=== PATIENT | male | born 1970 | race Caucasian/White ===

== ENCOUNTER → 2022-10-03 15:30 | Outpatient (BNVA) | payer OTHER, SELFPAY | PROVIDERS: PCP Nurse Practitioner Family; Visit Provider Urology | DX: N40.1 Benign prostatic hyperplasia with lower urinary tract symptoms (principal); R35.1 Nocturia; R39.12 Poor urinary stream; R39.11 Hesitancy of micturition | CPT/HCPCS: 99202 ==

== ENCOUNTER → 2022-12-05 14:50 | Outpatient (BNVA) | payer OTHER, SELFPAY | PROVIDERS: PCP Nurse Practitioner Family; Visit Provider Urology | DX: N40.1 Benign prostatic hyperplasia with lower urinary tract symptoms (principal); R35.1 Nocturia; R39.12 Poor urinary stream; N52.1 Erectile dysfunction due to diseases classified elsewhere; N35.919 Unspecified urethral stricture, male, unspecified site; E11.69 Type 2 diabetes mellitus with other specified complication; Z87.710 Personal history of (corrected) hypospadias | CPT/HCPCS: 52000; 99212 ==

== ENCOUNTER 2023-03-16 10:41 | Day surgery (SDC) | payer MEDICAID, SELFPAY ==
--- NOTE | 2023-03-13 12:06 | HO.ANESPROP2 ---
Documented by User: Светлана Valdivia NP 03/13/23 12:07 HPI - Anesthesia Eval Consult details Narrative: 52yo M for Cystoscopy urethral stricture dilation,hair laser using holmium laser [facility] Active Problems Active Problems: All Active Problems (Updated 12/19/22 @ 08:56 by Shailesh Del Toro MD) Urethral stricture (Acute) Hx-hypospadias (Acute) Erectile dysfunction associated with type 2 diabetes mellitus (Acute) Nocturia associated with benign prostatic hyperplasia (Acute) Urinary hesitancy (Acute) Weak urinary stream (Acute) BPH (benign prostatic hyperplasia) (Acute) Past Medical History Medical History BPH (benign prostatic hyperplasia) Diabetes mellitus, type II Hearing impaired Horseshoe kidney Uncontrolled type 2 diabetes mellitus with hyperglycemia Social History Social History Patient Tobacco Use Status: Former Tobacco user Are you DNR?: No Advance Directives: No Advance Directives Information Provided: Yes Meds Allergies Allergy/AdvReac Type Severity Reaction Status Date / Time No Known Allergies Allergy Verified 12/05/22 15:45 Home Medications Medication Instructions Recorded Confirmed Last Taken Type atorvastatin 40 mg tablet 40 mg PO BEDTIME cholesterol 10/03/22 Unknown History canagliflozin 300 mg tablet 300 mg PO QAM diabetes mellitus 10/03/22 Unknown History (Invokana) glipizide 10 mg tablet 10 mg PO BID diabetes mellitus 10/03/22 Unknown History lisinopril 10 mg tablet 10 mg PO QAM blood pressure 10/03/22 Unknown History sitagliptin phosphate 50 1 tab PO BID diabetes mellitus 10/03/22 Unknown History mg-metformin 1,000 mg tablet (Seprae) Exam Exam Date and Time: March 13, 2023 1206 Assessment and Plan Assessment Anesthesia Assessment: Chart Reviewed Documented by User: Devaughn Kapoor MD 03/16/23 11:43 PMF Past Medical History Medical History BPH (benign prostatic hyperplasia) Diabetes mellitus, type II Hearing impaired Horseshoe kidney Uncontrolled type 2 diabetes mellitus with hyperglycemia Family History Family history of problems with anesthesia: No Surgical History History of Problems with Anesthesia: No Social History Social History Patient Tobacco Use Status: Former Tobacco user Are you DNR?: No Advance Directives: No Advance Directives Information Provided: Yes Meds Allergies Allergy/AdvReac Type Severity Reaction Status Date / Time No Known Allergies Allergy Verified 12/05/22 15:45 Home Medications Medication Instructions Recorded Confirmed Last Taken Type atorvastatin 40 mg tablet 40 mg PO BEDTIME cholesterol 10/03/22 Unknown History canagliflozin 300 mg tablet 300 mg PO QAM diabetes mellitus 10/03/22 Unknown History (Invokana) glipizide 10 mg tablet 10 mg PO BID diabetes mellitus 10/03/22 Unknown History lisinopril 10 mg tablet 10 mg PO QAM blood pressure 10/03/22 Unknown History sitagliptin phosphate 50 1 tab PO BID diabetes mellitus 10/03/22 Unknown History mg-metformin 1,000 mg tablet (Tam) Exam Airway Mallampati Class: III TM Dist: >3cm Neck ROM: Full Assessment and Plan Assessment Anesthesia Assessment: Anesthesia Plan Discussed Final Anesthetic Review Family History of Problems with Anesthesia: No History of Problems with Anesthesia: No NPO: Yes ASA Class: II Final Preanesthetic Review: No Changes in Pt Med Stat, Meds/Allgs Chart Reviewed, Consent Obtained/Reviewed and Anes Risks/Benef Reviewed Patient Risk: Low Procedure Risk: Low Anesthetic Plan Anesthetic Plan: GA Disposition: Standard PACU
[2023-03-16 10:56] VITALS: BP 152/89; PULSE 76; RESP 20; TEMP 36.6; O2SAT 97
--- NOTE | 2023-03-16 11:55 | MHC.SHP ---
Pre-Procedural Eval Section A Date of Service: 03/16/23 The patient is an INPATIENT: No Changes since office visit: No Cold of Flu in the past 2 weeks, No New Medical Problems, No Changes in Medication and No Patient answered all questions The History & Physical has been completed within 30 days and I have reviewed it.: No Section B Chief Complaint: Unspecified urethral stricture, male, unspecified Details of Present Illness: prior hypospadias repair with urethral hair. Plan for laser of hair follicle with laser of proximal stricture. Relevant Family History (Specify if Yes): No Relevant Social History: None Present Medications: see Short Stay Collaborative assessment Medical History: No relevant PMH History of Previous Operations: Relevant previous surgery/procedure and date(s) Allergies: Allergies Allergy/AdvReac Type Severity Reaction Status Date / Time No Known Allergies Allergy Verified 12/05/22 15:45 Review of Systems Sugical H&P ROS: Negative: Constitution, Cardiovascular, Respiratory, Neurological, Psychiatric, Hem-Onc, Allergic/Immunologic, Gastrointestinal, Genitourinary, Musculoskeletal, Integumentary, Endocrine and Eyes/Ears/Nose/Throat Exam Surgical H&P Exam: Normal: HEENT, Normal: Heart, Normal: Lungs, Normal: Extremities, Normal: Abdomen, Normal: Skin and Normal: Neurological Plan Diagnosis/Plan: Unchanged I have reviewed the history and physical and performed a pertinent physical examination on my patient. No changes have occurred unless specified. Time Spent With Patient Time: Total time managing care of this patient today ____ minutes.
--- NOTE | 2023-03-16 13:06 | W.PM.OPN ---
Operative Note Operative Note Date of Service: 03/16/23 Narrative: PreOperative Diagnosis: 1. Urethral stricture secondary to prior hypospadias repair 2. Hair within urethra Post Operative Diagnosis: same Procedure: cystoscopy, dilation of urethral stricture proximal and distal, laser of urethral hair x5 Surgeon: Dr Shailesh Del Toro Anesthesia: general Indications for procedure: hypospadias repairs child using graft from on. Present with difficulty urination. Found to have distal and proximal stricture add point of anastomosis with hair on graft area. Procedure: After informed consent was verified the patient was brought to the operating room and placed in a supine position. Anesthesia was administered per protocol. The patient was prepped and draped in a sterile fashion. Safety pause time-out was performed. Antibiotics being given. Cystoscopy performed using pediatric cystoscope. Laser performed of excess small hair. Holmium laser of hair follicle x5 Using rigid ureteral scope urethra was navigated into bladder. Sensor guidewire placed. Narrowing at both the proximal and distal portions of the graft. Urethral dilator used up to [address] 16 M[place]ese [place] tip Tolerated procedure well was explained in operating room transferred in stable condition Pathology: stricture secondary to graft Drains: 16 Maltese beaver catheter
[2023-03-16 13:16] VITALS: BP 140/85; PULSE 79; RESP 14; TEMP 36.1; O2SAT 96
[2023-03-16 13:21] VITALS: BP 143/82; PULSE 76; RESP 18; O2SAT 98
[2023-03-16 13:26] VITALS: BP 139/84; PULSE 64; RESP 18; O2SAT 98
[2023-03-16 13:31] VITALS: BP 138/84; PULSE 70; RESP 18; O2SAT 98
[2023-03-16 13:46] VITALS: BP 133/82; PULSE 68; RESP 18; TEMP 36.1; O2SAT 97
== END 2023-03-16 14:34 | disposition home or self-care (01) ==
PROVIDERS: PCP Nurse Practitioner Family; Visit Provider Urology
PROC: 0TJB8ZZ Inspection of Bladder, Via Natural or Artificial Opening Endoscopic (ICD-10-PCS; CPT 52000; principal; 2023-03-16 12:30)
DX: N99.110 Postprocedural urethral stricture, male, meatal (principal); N36.8 Other specified disorders of urethra; Y83.2 Surgical operation with anastomosis, bypass or graft as the cause of abnormal reaction of the patient, or of later complication, without mention of misadventure at the time of the procedure; Y73.3 Surgical instruments, materials and gastroenterology and urology devices (including sutures) associated with adverse incidents; Q63.1 Lobulated, fused and horseshoe kidney; N40.1 Benign prostatic hyperplasia with lower urinary tract symptoms; R35.1 Nocturia; R39.12 Poor urinary stream; N52.1 Erectile dysfunction due to diseases classified elsewhere; E11.65 Type 2 diabetes mellitus with hyperglycemia; Z79.84 Long term (current) use of oral hypoglycemic drugs; Z87.710 Personal history of (corrected) hypospadias; Z79.899 Other long term (current) drug therapy; Z87.891 Personal history of nicotine dependence
CPT/HCPCS: 52281; 53899; 82947; C1758; C1769; J1100; J1956; J2250; J2405; J3010

== ENCOUNTER → 2023-03-16 10:41 | Outpatient (BNV) | payer MEDICAID, SELFPAY | PROVIDERS: PCP Nurse Practitioner Family; Visit Provider Urology | DX: N35.919 Unspecified urethral stricture, male, unspecified site (principal) | CPT/HCPCS: 53899 ==

== ENCOUNTER → 2023-03-19 10:16 | Outpatient (BNVA) | payer MEDICAID, SELFPAY | PROVIDERS: PCP Nurse Practitioner Family; Visit Provider Urology ==

== ENCOUNTER 2023-04-03 13:35 | Outpatient (AMB) | payer MEDICAID, SELFPAY ==
--- NOTE | 2023-04-03 13:45 | MHC.OFFVIS ---
Intake Intake Visit Reasons: 6 week (cysto urethral dilation) Intake Note: Pt presents to the office today for a 6 week follow-up cysto urethral dilation. Allergies No Known Allergies Allergy (Verified 04/03/23 14:15) HPI HPI Comments History of Present Illness Details aCrlitos is a pleasant [place] male. He is a patient of . He seen for the following urologic conditions - Lower urinary tract symptoms - erectile dysfunction Translation provided by qualified medical records field technician using electronic device [id number] Had recent dilatation with hair removal Does feel urination or effective Continue surveillance Erectile dysfunction in setting of diabetes Treatment with daily tadalafil and 20 mg on demand Successful Cystoscopy - prior bladder repair and hypospadias repair is child - use of skin flap - has hair within urethra and urethral narrowing Intervention - 03/29 cystoscopy, dilatation with hair remove PFSH Medical History BPH (benign prostatic hyperplasia) Diabetes mellitus, type II Hearing impaired Horseshoe kidney Uncontrolled type 2 diabetes mellitus with hyperglycemia Social History Patient Tobacco Use Status: Former Tobacco user Review of Systems Const Denies chills and Denies fever(s) Card Reports no additional complaints and Denies syncope Resp Denies cough GI Denies abdominal pain and Denies heartburn Reports as per HPI and Denies change in libido Neuro Denies syncope Psych Denies change in libido Endo Denies change in libido Physical Exam Const General: cooperative, healthy appearing, comfortable and no acute distress Orientation/consciousness: patient oriented x3 HEENT Face and sinus: Yes normal facial exam Mouth: moist mucous membranes Neck Neck: Yes normal visual inspection, Yes full ROM and Yes trachea midline Chest Chest palpation & inspection: normal inspection of the chest Resp Effort & Inspection: normal respiratory effort, able to speak in complete sentences and no respiratory distress GI Inspection: Yes normal to inspection Back/Spine/Pelvis Cervical Spine: normal cervical lordosis Thoracic/Lumbar Spine: thoracic and lumbar spine normal to inspection Skin General skin exam: no rashes or lesions noted Neuro General: patient oriented x3, gait normal, tone normal and moves all extremities Extrem General: Yes normal to inspection and Yes capillary refill normal Assessment & Plan Assessment & Plan (1) Urethral stricture: Code(s): N35.919 - Unspecified urethral stricture, male, unspecified site Qualifiers: Urethral stricture type: post-procedural Urethral stricture sex-location: male urethra-anterior Qualified Code(s): N99.114 - Postprocedural urethral stricture, male, unspecified (2) BPH (benign prostatic hyperplasia): Code(s): N40.0 - Benign prostatic hyperplasia without lower urinary tract symptoms Qualifiers: Lower urinary tract symptom presence: symptoms present Lower urinary tract symptom detail: post-void dribbling Qualified Code(s): N40.1 - Benign prostatic hyperplasia with lower urinary tract symptoms; N39.43 - Post-void dribbling (3) Erectile dysfunction associated with type 2 diabetes mellitus: Code(s): E11.69 - Type 2 diabetes mellitus with other specified complication; N52.1 - Erectile dysfunction due to diseases classified elsewhere Plan Continue tadalafil for bladder stabilization erections Patient Instructions: Imaging studies, laboratory and physical exam results were discussed and reviewed in detail. No major barriers to patient understanding were identified. An opportunity to ask questions regarding the treatment plan was provided. All questions were answered. The patient expressed understanding and agreement with the above treatment plan. The patient is aware they should contact our office by phone for worsening of their current condition or the appearance of new urologic symptoms. Compliance is encouraged with any medications and followup testing that is ordered. It is a privilege to participate in the urologic care of your patient. If you have any questions or concerns regarding treatment for the above conditions, or other urologic issues, please do not hesitate to contact me. The office telephone contact is [phone]. This note is constructed using voice recognition software. While every effort has been made to ensure accuracy governor assembler hydraulic errors may have been included. Yours sincerely, Dr Shailesh Del Toro MD, [facility] - Urology Providers of Expert, Compassionate Care for the Genitourinary System Coding Level of Care Code Est Pt Level 3 (10019) Diagnoses Postprocedural stricture of anterior urethra N99.114 Urethral stricture type: post-procedural Urethral stricture sex-location: male urethra-anterior Benign prostatic hyperplasia with post-void dribbling N40.1; N39.43 Lower urinary tract symptom presence: symptoms present Lower urinary tract symptom detail: post-void dribbling Erectile dysfunction associated with type 2 diabetes mellitus E11.69; N52.1
== END 2023-04-03 14:20 | disposition home or self-care (01) ==
PROVIDERS: Visit Provider Urology
DX: N99.114 Postprocedural urethral stricture, male, unspecified (principal); N40.1 Benign prostatic hyperplasia with lower urinary tract symptoms; N39.43 Post-void dribbling; E11.69 Type 2 diabetes mellitus with other specified complication; N52.1 Erectile dysfunction due to diseases classified elsewhere
CPT/HCPCS: 99213

== ENCOUNTER → 2023-04-03 13:35 | Outpatient (BNVA) | payer MEDICAID, SELFPAY | PROVIDERS: Visit Provider Urology | DX: N40.1 Benign prostatic hyperplasia with lower urinary tract symptoms (principal); N39.43 Post-void dribbling; N99.114 Postprocedural urethral stricture, male, unspecified; E11.65 Type 2 diabetes mellitus with hyperglycemia; N52.1 Erectile dysfunction due to diseases classified elsewhere | CPT/HCPCS: 99212 ==

== ENCOUNTER 2023-10-02 14:05 | Outpatient (AMB) | payer MEDICAID, SELFPAY ==
--- NOTE | 2023-10-02 14:32 | A.OFFVIS_ITS ---
Intake Intake Visit Reasons: 6m follow up Intake Note: Patient is Present for Follow Up PVR Urology Medication: Tadalafil Antibiotic Allergies: None Blood Thinners: None PVR: 231 PVR: Allergies No Known Allergies Allergy (Verified 04/03/23 14:15) HPI HPI Comments History of Present Illness Details Carlitos is a pleasant [place] male. He is a patient of . He seen for the following urologic conditions - Lower urinary tract symptoms - erectile dysfunction Translation provided by qualified medical billing clerk using electronic device [id number] [place] better urination after initial dilatation last year Would like repeat examination in operating room If needs reconstruction will need referral to [place] Erectile dysfunction in setting of diabetes Treatment with daily tadalafil and 20 mg on demand Successful Cystoscopy - prior bladder repair and hypospadias r epair is child - use of skin flap - has hair within urethra and urethral n arrowing Intervention - 03/29 cystoscopy, dilatation with hair remove PFSH Medical History BPH (benign prostatic hyperplasia) Diabetes mellitus, type II Hearing impaired Horseshoe kidney Uncontrolled type 2 diabetes mellitus with hyperglycemia Social History Patient Tobacco Use Status: Former Tobacco user Review of Systems Const Denies chills and Denies fever(s) Card Reports no additional complaints and Denies syncope Resp Denies cough GI Denies abdominal pain and Denies heartburn Reports as per HPI and Denies change in libido Neuro Denies syncope Psych Denies change in libido Endo Denies change in libido Physical Exam Const General: cooperative, healthy appearing, comfortable and no acute distress Orientation/consciousness: patient oriented x3 HEENT Face and sinus: Yes normal facial exam Mouth: moist mucous membranes Neck Neck: Yes normal visual inspection, Yes full ROM and Yes trachea midline Chest Chest palpation & inspection: normal inspection of the chest Resp Effort & Inspection: normal respiratory effort, able to speak in complete sentences and no respiratory distress GI Inspection: Yes normal to inspection Back/Spine/Pelvis Cervical Spine: normal cervical lordosis Thoracic/Lumbar Spine: thoracic and lumbar spine normal to inspection Skin General skin exam: no rashes or lesions noted Neuro General: patient oriented x3, gait normal, tone normal and moves all extremities Extrem General: Yes normal to inspection and Yes capillary refill normal Office Procedures Post Void Residual Post Residual Void Post Void Residual (PVR): 231 [id number] Void Residual by ultrasound Assessment & Plan Assessment & Plan (1) Urethral stricture: Code(s): N35.919 - Unspecified urethral stricture, male, unspecified site Qualifiers: Urethral stricture type: post-procedural Urethral stricture sex- location: male urethra-anterior Qualified Code(s): N99.114 - Postprocedural urethral stricture, male, unspecified Plan Prior history hypospadias repair as child in [place] using thigh flap Plan cystoscopy with dilatation Orders: Orders AMB Post Void Residual by ultrasound Today N39.43 - Post-void dribbling, N40.1 - Benign prostatic hyperplasia with lower urinary tract symptoms Patient Instructions: Imaging studies, laboratory and physical exam results were discussed and reviewed in detail. No major barriers to patient understanding were identified. An opportunity to ask questions regarding the treatment plan was provided. All questions were answered. The patient expressed understanding and agreement with the above treatment plan. The patient is aware they should contact our office by phone for worsening of their current condition or the appearance of new urologic symptoms. Compliance is encouraged with any medications and followup testing that is ordered. It is a privilege to participate in the urologic care of your patient. If you have any questions or concerns regarding treatment for the above conditions, or other urologic issues, please do not hesitate to contact me. The office telephone contact is [phone]. This note is constructed using voice recognition software. While every effort has been made to ensure accuracy fire prevention bureau captain errors may have been included. Yours sincerely, Dr Shailesh Del Toro MD, [facility] - Urology Providers of Expert, Compassionate Care for the Genitourinary System Coding Level of Care Code Est Pt Level 3 (13921) Diagnoses Postprocedural stricture of anterior urethra N99.114 Urethral stricture type: post-procedural Urethral stricture sex-location: male urethra-anterior CPT Codes Post Residual Void - PVR CPT Code: 50004-Epqa Void Residual by ultrasound ([id number])
== END 2023-10-02 14:52 | disposition home or self-care (01) ==
PROVIDERS: PCP Nurse Practitioner Family; Visit Provider Urology
DX: N99.114 Postprocedural urethral stricture, male, unspecified (principal)
CPT/HCPCS: 99213

== ENCOUNTER → 2023-10-02 14:05 | Outpatient (BNVA) | payer MEDICAID, SELFPAY | PROVIDERS: PCP Nurse Practitioner Family; Visit Provider Urology | DX: N99.114 Postprocedural urethral stricture, male, unspecified (principal); E11.69 Type 2 diabetes mellitus with other specified complication; N52.1 Erectile dysfunction due to diseases classified elsewhere; N40.1 Benign prostatic hyperplasia with lower urinary tract symptoms; N39.43 Post-void dribbling | CPT/HCPCS: 51798; 99212 ==

== ENCOUNTER 2023-12-14 08:27 | Day surgery (SDC) | payer OTHER, SELFPAY ==
[2023-12-10 11:56] VITALS: BMI 29.9
--- NOTE | 2023-12-11 12:03 | HO.ANESPROP2 ---
Documented by User: Светлана Valdivia NP 12/11/23 12:05 HPI - Anesthesia Eval Consult details Narrative: 53yo M for Cystoscopy Drect Vision Internal Urethrotomy s/p cysto, etc 03/2023 with GA-LMA 4 Anesthesia Pre-Procedure Meds Is the patient on any of the following meds?: Any other SGL-1 drugs or drugs that delay gastric emptying (Januvia, Invokana) PMFSH Active Problems Active Problems: All Active Problems Urethral stricture (Acute) Hx-hypospadias (Acute) Erectile dysfunction associated with type 2 diabetes mellitus (Acute) Nocturia associated with benign prostatic hyperplasia (Acute) Urinary hesitancy (Acute) Weak urinary stream (Acute) BPH (benign prostatic hyperplasia) (Acute) Past Medical History Medical History (Updated 12/10/23 @ 11:55 by Taty Martinez RN) 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 BPH (benign prostatic hyperplasia) Uncontrolled type 2 diabetes mellitus with hyperglycemia Diabetes mellitus, type II Hearing impaired Family History Family history of problems with anesthesia: No Surgical History Surgical History (Updated 12/10/23 @ 11:55 by Taty Martinez RN) History of ear surgery Hx of appendectomy History of cystoscopy (03/16/23) History of Problems with Anesthesia: No Social History Social History Patient Tobacco Use Status: Former Tobacco user Advance Directives: No Advance Directives Information Provided: Yes Meds Allergies Allergy/AdvReac Type Severity Reaction Status Date / Time No Known Allergies Allergy Verified 12/14/23 08:55 Home Medications ?Medication ?Instructions ?Recorded ?Confirmed ?Last Taken ?Type atorvastatin 40 mg tablet 40 mg PO BEDTIME cholesterol 10/03/22 12/10/23 Unknown History canagliflozin 300 mg tablet 300 mg PO QAM diabetes mellitus 10/03/22 12/10/23 Unknown History (Invokana) glipizide 10 mg tablet 10 mg PO BID diabetes mellitus 10/03/22 12/10/23 Unknown History lisinopril 10 mg tablet 10 mg PO QAM blood pressure 10/03/22 12/10/23 Unknown History sitagliptin phosphate 50 1 tab PO DAILY diabetes mellitus 10/03/22 12/10/23 Unknown History mg-metformin 1,000 mg tablet (Andrewumelee ann) Exam Height,Weight and Vital Signs: Height 5 ft 5 in Weight 81.6 kg Assessment and Plan Assessment Anesthesia Assessment: Chart Reviewed Final Anesthetic Review Family History of Problems with Anesthesia: No History of Problems with Anesthesia: No Documented by User: Jason Meza MD 12/14/23 09:04 [facility] Past Medical History Medical History (Updated 12/10/23 @ 11:55 by Taty Martinez, ELIS) 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 BPH (benign prostatic hyperplasia) Uncontrolled type 2 diabetes mellitus with hyperglycemia Diabetes mellitus, type II Hearing impaired Surgical History Surgical History (Updated 12/10/23 @ 11:55 by Taty Martinez RN) History of ear surgery Hx of appendectomy History of cystoscopy (03/16/23) Social History Social History Patient Tobacco Use Status: Former Tobacco user Advance Directives: No Advance Directives Information Provided: Yes Meds Allergies Allergy/AdvReac Type Severity Reaction Status Date / Time No Known Allergies Allergy Verified 12/14/23 08:55 Home Medications ?Medication ?Instructions ?Recorded ?Confirmed ?Last Taken ?Type atorvastatin 40 mg tablet 40 mg PO BEDTIME cholesterol 10/03/22 12/10/23 Unknown History canagliflozin 300 mg tablet 300 mg PO QAM diabetes mellitus 10/03/22 12/10/23 Unknown History (Invokana) glipizide 10 mg tablet 10 mg PO BID diabetes mellitus 10/03/22 12/10/23 Unknown History lisinopril 10 mg tablet 10 mg PO QAM blood pressure 10/03/22 12/10/23 Unknown History sitagliptin phosphate 50 1 tab PO DAILY diabetes mellitus 10/03/22 12/10/23 Unknown History mg-metformin 1,000 mg tablet (Janumet) Exam Height,Weight and Vital Signs: Height 5 ft 5 in Weight 81.6 kg Airway Mallampati Class: II TM Dist: <=3cm Neck ROM: Full Heart: ok Lungs: ok Assessment and Plan Assessment Anesthesia Assessment: Anesthesia Plan Discussed Final Anesthetic Review NPO: Yes ASA Class: II Final Preanesthetic Review: No Changes in Pt Med Stat, Meds/Allgs Chart Reviewed, Consent Obtained/Reviewed and Anes Risks/Benef Reviewed Patient Risk: Intermediate Procedure Risk: Low Anesthetic Plan Anesthetic Plan: GA and Agree w/ Assess. and Plan Disposition: Standard PACU
[2023-12-14] VITALS (7 sets, daily range): BP systolic 123–147; BP diastolic 79–97; PULSE 68–78; RESP 16–18; TEMP 36.3–36.6; O2SAT 96–100; BMI 29.0
--- NOTE | ~2023-12-14 | FL_ITS ---
EXAMINATION: XR FLUOROSCOPY WITH IMAGES CLINICAL INFORMATION: Urethral stricture dilation. COMPARISON: None available. TECHNIQUE: Fluoroscopy Supervised By: Dr. Shailesh Del Toro. Fluoroscopy Time: 44.5 seconds. Cumulative Dose: 12.07 mGy. Images: 1. FINDINGS: The single submitted image shows an inflated balloon positioned for urethral stricture dilation. FL/FL guidance in OR IMPRESSION: Intraoperative fluoroscopic guidance is provided during urethral stricture dilation. Please see the patient's Operative Report for full procedural details.
--- NOTE | 2023-12-14 08:57 | MHC.SHP ---
Pre-Procedural Eval Section A - 24 Hr Update-Section A only Date of Service: 12/14/23 The patient is an INPATIENT: No Changes since office visit: No Cold of Flu in the past 2 weeks, No New Medical Problems, No Changes in Medication and No Patient answered all questions The patient has been examined within 24 hours of the surgical procedure. The History & Physical has been completed within 30 days and I have reviewed it.: No Section B - Complete if H&P > 30 days Chief Complaint: Unspecified urethral stricture, male, unspecified Details of Present Illness: Recurrent urethral stricture. Relevant Family History (Specify if Yes): No Relevant Social History: None Present Medications: see Short Stay Collaborative assessment Medical History: No relevant PMH History of Previous Operations: Relevant previous surgery/procedure and date(s) Allergies: Allergies Allergy/AdvReac Type Severity Reaction Status Date / Time No Known Allergies Allergy Verified 12/14/23 08:55 Review of Systems Sugical H&P ROS: Negative: Constitution, Cardiovascular, Respiratory, Neurological, Psychiatric, Hem-Onc, Allergic/Immunologic, Gastrointestinal, Genitourinary, Musculoskeletal, Integumentary, Endocrine and Eyes/Ears/Nose/Throat Exam Surgical H&P Exam: Normal: HEENT, Normal: Heart, Normal: Lungs, Normal: Extremities, Normal: Abdomen, Normal: Skin and Normal: Neurological Plan Diagnosis/Plan: Unchanged (Plan for cystoscopy, direct visualization internal urethrotomy.) I have reviewed the history and physical and performed a pertinent physical examination on my patient. No changes have occurred unless specified. Time Spent With Patient Time: Total time managing care of this patient today ____ minutes.
[2023-12-14 09:03] LABS: Glucose, Whole Blood 260 mg/dL (60-115)
[2023-12-14] MEDS: Lactated Ringers 1,000 ML 100 ML IVCONT (09:10)
--- NOTE | 2023-12-14 10:26 | P.OP_ITS ---
Operative Note Operative Note Date of Service: 12/14/23 Narrative: PreOperative Diagnosis: Anterior urethral stricture Post Operative Diagnosis: 1. Anterior urethral stricture 2. Posterior urethral stricture Procedure: 1. Dilatation anterior urethral stricture 2. Retrograde urethrogram 3. Laser incision of posterior urethral stricture 4. meatal dilatation Surgeon: Dr Shailesh Del Toro Anesthesia: LMA Indications for procedure: Prior hypospadias repair with medial thigh flap performed as child in [place]. Presents with weakness of stream. Known prior anterior urethral stricture. Procedure: After informed consent was verified the patient was brought to the operating room and placed in a supine position. Anesthesia was administered per protocol. The patient was prepped and draped in a sterile fashion. Safety pause time-out was performed. Antibiotics being given. Initial attempt was made to pass an 18 [place] cystoscope. Hypospadias opening at base of penile glans. Dilated with meatal dilator. Unable to pass 18 [place] cystoscope. Pediatric cystoscope used to navigate initial narrowing. Area of scarring seen proximally 5 cm from urethral opening. Able to advance further. There was a small anterior opening and a larger posterior passage. 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 Glidewire able to be passed into small anterior passage. Cystoscope removed. Retrograde urethrogram performed. Showed posterior urethral stricture. There was a thin trickle of contrast that was able to follow the wire into the bladder. Wire showed well coiled in bladder. Short offset rigid ureteral scope was then passed along the wire. Unable to pass through posterior stricture. Ureteral scope was removed. The ureteral scope was placed over the wire and then advanced into the bladder. This dilated the initial posterior stricture. Ureteral scope removed. Ureteral scope then replaced alongside the wire into the bladder. Using a 365mm holmium laser fiber with soft tissue settings and incision was then made at the 12 o'clock position. This allowed free passage of the ureteral scope into the bladder. The ureteral scope was removed. A 6/12 dilator [place] was placed. Attempt was made to place a 14 [place] tip catheter. Unable to pass. Using the ureteric dilator set the posterior stricture was then dilated to 16 [place]. Unable to pass 14 [place] catheter. The area of restriction was the anterior stricture. Twelve [place] tip catheter was able to be passed into the bladder. Glidewire removed. Catheter capped. He tolerated the procedure well was extubated in operating room transferred in stable condition to recovery area Pathology: None Drains: 12 [place] catheter
[2023-12-14] MEDS: Acetaminophen 325 MG TABLET 975 MG PO (11:14)
== END 2023-12-14 11:50 | disposition home or self-care (01) ==
PROVIDERS: Visit Provider Urology
PROC: (CPT 52276; principal; 2023-12-14 10:40)
DX: N99.114 Postprocedural urethral stricture, male, unspecified (principal); N40.1 Benign prostatic hyperplasia with lower urinary tract symptoms; N39.43 Post-void dribbling; E11.65 Type 2 diabetes mellitus with hyperglycemia; Q63.1 Lobulated, fused and horseshoe kidney; H91.90 Unspecified hearing loss, unspecified ear; Z79.899 Other long term (current) drug therapy; Z87.891 Personal history of nicotine dependence; Z79.84 Long term (current) use of oral hypoglycemic drugs
CPT/HCPCS: 52276; 82947; C1769; J1885; J1956; J2704; J3010; Q9967

== ENCOUNTER → 2023-12-14 08:27 | Outpatient (BNV) | payer OTHER, SELFPAY | PROVIDERS: Visit Provider Urology | DX: N35.814 Other anterior urethral stricture, male (principal) | CPT/HCPCS: 51610; 52276; 74420 ==

== ENCOUNTER → 2023-12-22 08:24 | Outpatient (BNVA) | payer OTHER, SELFPAY | PROVIDERS: Visit Provider Urology ==

== ENCOUNTER → 2024-01-15 15:24 | Outpatient (BNVA) | payer OTHER, SELFPAY | PROVIDERS: Visit Provider Urology | DX: N99.114 Postprocedural urethral stricture, male, unspecified (principal) | CPT/HCPCS: 99212 ==

== ENCOUNTER 2024-01-15 15:34 | Outpatient (AMB) | payer OTHER, SELFPAY ==
--- NOTE | 2024-01-15 15:45 | MHC.OFFVIS ---
Intake Visit Reasons: Cystoscopy DVIU follow up Allergies No Known Allergies Allergy (Verified 12/14/23 08:55) HPI Comments Details: Carlitos is a pleasant [place]istanian male. He is a patient of . He seen for the following urologic conditions - Lower urinary tract symptoms - erectile dysfunction Translation provided by [employer] translate Discussed findings at time of surgery Had both anterior and posterior stricture Able to dilate and laser to 12 [place] Significant improvement in emptying Six-month follow-up Erectile dysfunction in setting of diabetes Treatment with daily tadalafil and 20 mg on demand Successful Cystoscopy - prior bladder repair and hypospadias repair is child - use of skin flap - has hair within urethra and urethral narrowing Intervention - 03/29 cystoscopy, dilatation with hair remove PFSH Medical History (Updated 12/10/23 @ 11:55 by Taty Martinez RN) 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 BPH (benign prostatic hyperplasia) Uncontrolled type 2 diabetes mellitus with hyperglycemia Diabetes mellitus, type II Hearing impaired Surgical History (Updated 12/10/23 @ 11:55 by Taty Martinez RN) History of ear surgery Hx of appendectomy History of cystoscopy (03/16/23) Social History Patient Tobacco Use Status: Former Tobacco user Quit Date: 1992 Tobacco use type: Cigarette Years Smoked: 5 Review of Systems Const Denies chills and Denies fever(s) Card Reports no additional complaints and Denies syncope Resp Denies cough GI Denies abdominal pain and Denies heartburn Reports as per HPI and Denies change in libido Neuro Denies syncope Psych Denies change in libido Endo Denies change in libido Physical Exam Const General: cooperative, healthy appearing, comfortable and no acute distress Orientation/consciousness: patient oriented x3 HEENT Face and sinus: Yes normal facial exam Mouth: moist mucous membranes Neck Neck: Yes normal visual inspection, Yes full ROM and Yes trachea midline Chest Chest palpation & inspection: normal inspection of the chest Resp Effort & Inspection: normal respiratory effort, able to speak in complete sentences and no respiratory distress GI Inspection: Yes normal to inspection Back/Spine/Pelvis Cervical Spine: normal cervical lordosis Thoracic/Lumbar Spine: thoracic and lumbar spine normal to inspection Skin General skin exam: no rashes or lesions noted Neuro General: patient oriented x3, gait normal, tone normal and moves all extremities Extrem General: Yes normal to inspection and Yes capillary refill normal Assessment & Plan Assessment & Plan (1) Urethral stricture: Code(s): N35.919 - Unspecified urethral stricture, male, unspecified site Category: Medical Qualifiers: Urethral stricture type: post-procedural Urethral stricture sex-location: male urethra-anterior Qualified Code(s): N99.114 - Postprocedural urethral stricture, male, unspecified Plan Continue surveillance Six-month follow-up Patient Instructions: Imaging studies, laboratory and physical exam results were discussed and reviewed in detail. No major barriers to patient understanding were identified. An opportunity to ask questions regarding the treatment plan was provided. All questions were answered. The patient expressed understanding and agreement with the above treatment plan. The patient is aware they should contact our office by phone for worsening of their current condition or the appearance of new urologic symptoms. Compliance is encouraged with any medications and followup testing that is ordered. It is a privilege to participate in the urologic care of your patient. If you have any questions or concerns regarding treatment for the above conditions, or other urologic issues, please do not hesitate to contact me. The office telephone contact is [phone]. This note is constructed using voice recognition software. While every effort has been made to ensure accuracy production checker errors may have been included. Yours sincerely, Dr Shailesh Del Toro MD, [facility] - Urology Providers of Expert, Compassionate Care for the Genitourinary System Coding Level of Care Code Est Pt Level 3 (06152) Diagnoses Postprocedural stricture of anterior urethra N99.114 Urethral stricture type: post-procedural Urethral stricture sex-location: male urethra-anterior
== END 2024-01-15 16:04 | disposition home or self-care (01) ==
PROVIDERS: Visit Provider Urology
DX: N99.114 Postprocedural urethral stricture, male, unspecified (principal)
CPT/HCPCS: 99213

== ENCOUNTER 2024-07-20 15:41 | Outpatient (AMB) | payer OTHER, SELFPAY ==
--- NOTE | 2024-07-20 15:58 | A.OFFVIS_ITS ---
Intake Visit Reasons: 6m follow up Intake Note: Patient is present for Follow up Uretheral Stricture Urology Med: Tadalafil Antibiotic Allergy: None Allergies No Known Allergies Allergy (Verified 12/14/23 08:55) HPI Comments Details: Carlitos is a pleasant French male. He is a patient of . He seen for the following urologic conditions - incomplete bladder emptying secondary to urethral stricture - erectile dysfunction Telephone translation French Discussed findings at time of surgery Had both anterior and posterior urethral stricture Is expected to be required to use a catheter for the foreseeable future in order to keep his bladder empty using 1 time per day 12 [place] straight Emptying works as long as he uses catheter Previously we have discussed referral to reconstructive specialist At this point in time they will defer Also reports intermittent discomfort. We will try Naprosyn as needed. 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 BPH (benign prostatic hyperplasia) Uncontrolled type 2 diabetes mellitus with hyperglycemia Diabetes mellitus, type II Hearing impaired Surgical History (Updated 12/10/23 @ 11:55 by Taty Martinez RN) History of ear surgery Hx of appendectomy History of cystoscopy (03/16/23) Social History Patient Tobacco Use Status: Former Tobacco user Tobacco use type: Cigarette Years Smoked: 5 Review of Systems Const Denies chills and Denies fever(s) Card Reports no additional complaints and Denies syncope Resp Denies cough GI Denies abdominal pain and Denies heartburn Reports as per HPI and Denies change in libido Neuro Denies syncope Psych Denies change in libido Endo Denies change in libido Physical Exam Const General: cooperative, healthy appearing, comfortable and no acute distress Orientation/consciousness: patient oriented x3 HEENT Face and sinus: Yes normal facial exam Mouth: moist mucous membranes Neck Neck: Yes normal visual inspection, Yes full ROM and Yes trachea midline Chest Chest palpation & inspection: normal inspection of the chest Resp Effort & Inspection: normal respiratory effort, able to speak in complete sentences and no respiratory distress GI Inspection: Yes normal to inspection Back/Spine/Pelvis Cervical Spine: normal cervical lordosis Thoracic/Lumbar Spine: thoracic and lumbar spine normal to inspection Skin General skin exam: no rashes or lesions noted Neuro General: patient oriented x3, gait normal, tone normal and moves all extremities Extrem General: Yes normal to inspection and Yes capillary refill normal Assessment & Plan Assessment & Plan (1) Urethral stricture: Code(s): N35.919 - Unspecified urethral stricture, male, unspecified site Category: Medical Qualifiers: Urethral stricture type: post-procedural Urethral stricture sex- location: male urethra-anterior Qualified Code(s): N99.114 - Postprocedural urethral stricture, male, unspecified (2) Urinary retention with incomplete bladder emptying: Code(s): R33.9 - Retention of urine, unspecified Category: Medical Plan Continue with daily catheterization Six-month follow-up Medications: New naproxen (Naprosyn) 500 mg PO Q12H PRN 30 tabs 0RF pain N20.0 - Calculus of kidney, N39.43 - Post-void dribbling, N40.1 - Benign prostatic hyperplasia with lower urinary tract symptoms Patient Instructions: Imaging studies, laboratory and physical exam results were discussed and reviewed in detail. No major barriers to patient understanding were identified. An opportunity to ask questions regarding the treatment plan was provided. All questions were answered. The patient expressed understanding and agreement with the above treatment plan. The patient is aware they should contact our office by phone for worsening of their current condition or the appearance of new urologic symptoms. Compliance is encouraged with any medications and followup testing that is ordered. It is a privilege to participate in the urologic care of your patient. If you have any questions or concerns regarding treatment for the above conditions, or other urologic issues, please do not hesitate to contact me. The office telephone contact is [phone]. This note is constructed using voice recognition software. While every effort has been made to ensure accuracy economic history teacher errors may have been included. Yours sincerely, Dr Shailesh Del Toro MD, [facility] - Urology Providers of Expert, Compassionate Care for the Genitourinary System Coding Level of Care Code Est Pt Level 3 (23317) Diagnoses Postprocedural stricture of anterior urethra N99.114 Urethral stricture type: post-procedural Urethral stricture sex-location: male urethra-anterior Urinary retention with incomplete bladder emptying R33.9
== END 2024-07-20 16:30 | disposition home or self-care (01) ==
PROVIDERS: Visit Provider Urology
DX: N99.114 Postprocedural urethral stricture, male, unspecified (principal); R33.9 Retention of urine, unspecified
CPT/HCPCS: 99213

== ENCOUNTER → 2024-07-20 15:41 | Outpatient (BNVA) | payer OTHER, SELFPAY | PROVIDERS: Visit Provider Urology | DX: R33.9 Retention of urine, unspecified (principal); N99.114 Postprocedural urethral stricture, male, unspecified; N52.1 Erectile dysfunction due to diseases classified elsewhere | CPT/HCPCS: 99212 ==

== ENCOUNTER 2025-02-24 11:02 | Outpatient (AMB) | payer OTHER, SELFPAY ==
--- OUTSIDE RECORDS SUMMARY | 2025-02-24 11:27 | XMS_ITS | Clinical Summary ---
Author Organization [facility] [address] [facility] lding Address [address] [place] [address] Phone Care Team Providers Care Marble Cleaner Name Role Phone Tete Arguello MD Primary Care Provider Allergies No known active allergies Medications metFORMIN XR (GLUCOPHAGE-XR) 500 mg 24 hr tablet Take 2 tablets (1,000 mg total) by mouth 2 (two) times a day. Do not crush, chew, or split. 180 tablet 2 5 Active atorvastatin (LIPITOR) 40 mg tabletIndications: Mixed hyperlipidemia Take 1 tablet (40 mg total) by mouth 1 (one) time each day. 90 each 1 5 Active lisinopriL (PRINIVIL,ZESTRIL) 10 mg tabletIndications: Primary hypertension Take 1 tablet (10 mg total) by mouth 1 (one) time each day. 90 each 1 5 Active SITagliptin phosphate (Januvia) 100 mg tabletIndications: Type 2 diabetes mellitus with hyperglycemia, without long-term current use of insulin (CMS/HCC V24, CMS/HCC V28) Take 1 tablet (100 mg total) by mouth 1 (one) time each day. 90 each 5 Active empagliflozin (Jardiance) 10 mg tabletIndications: Type 2 diabetes mellitus with hyperglycemia, without long-term current use of insulin (CMS/HCC V24, CMS/HCC V28) Take 1 tablet (10 mg total) by mouth 1 (one) time each day. 90 tablet 5 Active SITagliptin phosphate (Januvia) 50 mg tabletIndications: Type 2 diabetes mellitus with hyperglycemia, without long-term current use of insulin [place] [place], [facility] V28),Mixed hyperlipidemia Take 1 tablet (50 mg total) by mouth 1 (one) time each day. 30 each 11 5 02/01/20 25 Discontin ued(Dose adjustmen t) atorvastatin (LIPITOR) 40 mg tablet Take 1 tablet (40 mg total) by mouth. 4 01/28/20 25 Discontin ued(Reord er) lisinopriL (PRINIVIL,ZESTRIL) 10 mg tablet Take 1 tablet (10 mg total) by mouth daily. 4 01/28/20 25 Discontin ued(Reord er) Active Problems Problem Noted Date Diagnosed Date BPH (benign prostatic hyperplasia) 06/29/2024 Horseshoe kidney 06/29/2024 Diabetes ([facility] [place], [facility] [place]) 03/18/2024 Hypertension 03/18/2024 Hyperlipidemia 03/18/2024 Encounters Date Type Department Care Team Description 01/27/2025 3:30 PM EDT Office Visit Adult Medicine [address] [phone] Mac Martinez, [place] Type 2 diabetes mellitus with hyperglycemia, without long-term current use of insulin ([facility] [place], [facility] V28) (Primary Dx); Mixed hyperlipidemia; Primary hypertension from Last 3 Months Immunizations Name Administration Dates Next Due Influenza Quadravalent, pratik mbinant, 0.5ml, preservative free (Flublok) 18yo and older 07/01/2020 Influenza trivalent, with pr eservative (Fluzone; Afluria) 6mo and older 07/01/2020 MMR, measles mumps and rubel la Live (Priorix; M-M-R II) 12mo and older 07/24/2020 Tdap Tetanus diptheria acell ular pertussis (Boostrix; Adacel) 7yo and older 07/24/2020 Surgical History Surgery Date Site/Laterality Comments APPENDECTOMY 03/21/1993 PROCEDURE: HISTORICAL APPENDECTOMY Medical History Medical History Date Comments Diabetes mellitus type 2, co ntrolled, with complications ([facility] [place], [facility] V28) DX:Diabetes mellitus type 2, controlled, with complications (HCC) Essential hypertension DX:Essent ial hypertension Hyperlipidemia DX:Hyperlipidemi a Hearing loss DX:Hearing loss Family History Medical History Relation Name Comments Thyroid disease Mother Relation Name Status Comments Brother 1 Alive Brother 2 Alive Brother 3 Alive Father Mother Alive Social History Tobacco Use Types Packs/Day Years Used Date Smoking Tobacco: Never Smokeless Tobacco: Never Alcohol Use Standard Drinks/Week Comments Not Currently 0 (1 standard drink = 0.6 oz pur e alcohol) Sex and Gender Information Value Date Recorded Sex Assigned at Not on file Legal Sex Male 9:42 PM EST Gender Identity Not on file Sexual Orientation Not on file Obstetrics History Last Filed Vital Signs Vital Sign Reading Time Taken Comments Blood Pressure 113/77 01/27/2025 3:40 PM EDT Pulse 77 01/27/2025 3:40 PM EDT Temperature 36.2 C (97.2 F) 01/27/2025 3:40 PM EDT Respiratory Rate 16 09/23/2024 3:30 PM EST Oxygen Saturation - - Inhaled Oxygen Concentration - - Weight 78.9 kg (174 lb) 01/27/2025 3:40 PM EDT Height 165.1 cm (5' 5 ) 01/27/2025 3:40 PM EDT Body Mass Index 28.96 01/27/2025 3:40 PM EDT Plan of Treatment Upcoming Encounters Date Type Department Care Team (Late st Contact Info) Description 05/12/2025 2:45 PM EDT Office Visit Adult Medicine - [address] [phone] Tete Arguello MD [address] [place] [address] Health Maintenance Due Date Last Done Comments Diabetes: Annual Retina Eye Exam 1981 Hepatitis B Vaccines (1 of 3 - 19+ 3-dose series) 1990 Pneumococcal Vaccine: 50+ Years (1 of 2 - PCV) 1990 Pneumococcal Vaccine: Pediatrics (0 to 5 Years) and At-Risk Patients (6 to 64 Years) (1 of 2 - PCV) 1990 Zoster Vaccines (1 of 2) 2021 COVID-19 Vaccine (1 - 2024-25 season) 2024 Colorectal Cancer Screening: Colonoscopy 07/20/2024 Social Influencers of Health Screening 07/20/2024 Depression Screening 11/05/2024 11/06/2023 Diabetes: Annual Foot Exam 03/18/2025 03/18/2024 Influenza Vaccine (Season Ended) 2025 07/01/2020, 07/01/2020 Diabetes: Blood Sugar Control Test (HGBA1C) 07/30/2025 01/27/2025, 09/27/2024, 06/22/2024, Additional history exists Diabetes: Annual Urine Albumin-Creatinine Ratio (uACR) 09/27/2025 09/27/2024, 03/18/2024, 11/06/2023, Additional history exists Diabetes: Annual GFR (Glomerular Filtration Rate) 01/27/2026 01/27/2025, 09/27/2024, 03/18/2024, Additional history exists Hypertension/CHF/CAD Annual BMP Blood Test 01/27/2026 01/27/2025, 09/27/2024, 03/18/2024, Additional history exists Cholesterol Screening (Lipid Panel) 09/27/2029 09/27/2024, 03/18/2024, 11/06/2023, Additional history exists DTaP,Tdap,and Td Vaccines (2 - Td or Tdap) 07/24/2030 07/24/2020 HIV Screening Completed 08/17/2019 MMR Vaccines Aged Out 07/24/2020 No longer eligi ble based on patient's age to complete this topic Colorectal Cancer Screening: Stool Based Tests (FOBT/FIT) Discontinued 12/30/2021 Hepatitis C Screening Completed 03/18/2024 , 05/01/2020, 05/01/2020 HIB Vaccines Aged Out No longer eligi ble based on patient's age to complete this topic HPV Vaccines Aged Out No longer eligi ble based on patient's age to complete this topic Hepatitis A Vaccines Aged Out No long er eligible based on patient's age to complete this topic IPV Vaccines Aged Out No longer eligi ble based on patient's age to complete this topic Meningococcal ACWY Vaccine Aged Out N o longer eligible based on patient's age to complete this topic Meningococcal B Vaccine Aged Out No l onger eligible based on patient's age to complete this topic RSV Immunization Patients Under 20 months Aged Out No longer eligible based on patient's age to complete this topic Varicella Vaccines Aged Out No longer eligible based on patient's age to complete this topic Procedures Procedure Name Priority Date/Time Associated Diagnosis Comments COMPREHENSIVE METABOLIC PANEL Routine 01/27/2025 4:28 PM EDT Type 2 diabetes mellitus with hyperglycemia, without long-term current use of insulin ([facility] V24, [facility] V28) HEMOGLOBIN A1C Routine 01/27/2025 4:28 PM EDT Type 2 diabetes mellitus with hyperglycemia, without long-term current use of insulin ([facility] V24, [facility] V28) MICROALBUMIN CREATININE URINE RATIO Routine 09/27/2024 9:10 AM EST Type 2 diabetes mellitus with hyperglycemia, without long-term current use of insulin ([facility] V24, [facility] V28) Mixed hyperlipidemia LIPID PANEL WITH REFLEX TO DIRECT LDL Routine 09/27/2024 9:00 AM EST Type 2 diabetes mellitus with hyperglycemia, without long-term current use of insulin ([facility] V24, [facility] V28) Mixed hyperlipidemia HEPATITIS C SCREENING Routine 03/18/2024 DIABETES FOOT EXAM Routine 03/18/2024 from Last 3 Months or Most Recently Relevant to Health Maintenance Results * (ABNORMAL) Hemoglobin A1c (01/27/2025 4:28 PM EDT) Hemoglobin A1C 11.0(H) <6.5 % LAB CHEMISTRY METHOD 01/29/2025 1:04 PM EDT [facility] Mean Bld Glu Estim. 269 mg/dL LAB CHEMISTRY METHOD 01/29/2025 1:04 PM EDT [facility] Blood Venous blood specimen / Unknown Venipuncture / Unknown 01/27/2025 4:28 PM EDT 01/27/2025 4:28 PM EDT us Mac RIVAS LAB BLOOD ORDERABLES Final Re sult [facility] [address] [place] [address], * (ABNORMAL) Comprehensive metabolic panel (01/27/2025 4:28 PM EDT) Sodium 132(L) 133 - 145 mmol/L LAB CHEMISTRY METHOD 01/27/2025 6:20 PM EDT [facility] Potassium 4.7 3.5 - 5.5 mmol/L LAB CHEMISTRY METHOD 01/27/2025 6:20 PM [facility] Chloride 98 96 - 110 mmol/L LAB CHEMISTRY METHOD 01/27/2025 6:20 PM [facility] CO2 27 21 - 32 mmol/L LAB CHEMISTRY METHOD 01/27/2025 6:20 PM [facility] Anion Gap 7 3 - 11 LAB CHEMISTRY METHOD 01/27/2025 6:20 PM [facility] Glucose 280(H) 70 - 100 mg/dL LAB CHEMISTRY METHOD 01/27/2025 6:20 PM [facility] BUN 20 5 - 25 mg/dL LAB CHEMISTRY METHOD 01/27/2025 6:20 PM [facility] Creatinine 0.98 0.70 - 1.30 mg/dL LAB CHEMISTRY METHOD 01/27/2025 6:20 PM [facility] eGFR 92 >=60 mL/min/1. 73m2 LAB CHEMISTRY METHOD 01/27/2025 6:20 PM [facility] Comment:Calculation based on the Chronic Kidney Disease Epidemiology Collaboration (CKD-EPI) equation refit without adjustment for race. BUN/Creatinine Ratio 20.4 LAB CHEMISTRY METHOD 01/27/2025 6:20 PM [facility] Calcium 9.8 8.5 - 10.5 mg/dL LAB CHEMISTRY METHOD 01/27/2025 6:20 PM EDT [facility] AST (SGOT) 18 10 - 42 unit/L LAB CHEMISTRY METHOD 01/27/2025 6:20 PM EDT [facility] ALT (SGPT) 41 10 - 60 unit/L LAB CHEMISTRY METHOD 01/27/2025 6:20 PM EDT [facility] Alkaline Phosphatase 60 42 - 121 unit/L LAB CHEMISTRY METHOD 01/27/2025 6:20 PM EDT [facility] Total Protein 7.6 6.0 - 8.0 g/dL LAB CHEMISTRY METHOD 01/27/2025 6:20 PM EDT [facility] Albumin 4.1 3.2 - 5.0 g/dL LAB CHEMISTRY METHOD 01/27/2025 6:20 PM EDT [facility] Total Bilirubin 0.8 0.0 - 1.4 mg/dL LAB CHEMISTRY METHOD 01/27/2025 6:20 PM EDT [facility] Blood Venous blood specimen / Unknown Venipuncture / Unknown 01/27/2025 4:28 PM EDT 01/27/2025 4:28 PM EDT us Mac RIVAS LAB BLOOD ORDERABLES Final Re sult [facility] [address] [place] [address], * (ABNORMAL) Microalbumin creatinine urine ratio (09/27/2024 9:10 AM EST) Creatinine, Urine 237.0 mg/dL LAB CHEMISTRY METHOD 09/27/2024 1:15 PM EST [facility] Microalb, Ur 86.3(H) 0.0 - 29.0 mg/L LAB CHEMISTRY METHOD 09/27/2024 1:15 PM EST [facility] Microalb/Crea t Ratio 36(H) <30 mg/g creat LAB CHEMISTRY METHOD 09/27/2024 1:15 PM [facility] Urine Urine specimen obtained by clean catch procedure / Unknown Non-blood Collection / Unknown 09/27/2024 9:10 AM EST 09/27/2024 9:10 AM EST Tete Arguello MD LAB URINE ORDERABLES F inal Result [facility] [address] [place] [address], [place] [phone] * (ABNORMAL) Lipid panel with reflex to direct LDL (09/27/2024 9:00 AM EST) Cholesterol 184 0 - 200 mg/dL LAB CHEMISTRY METHOD 09/27/2024 12:55 PM [facility] Triglycerides 129 0 - 150 mg/dL LAB CHEMISTRY METHOD 09/27/2024 12:55 PM [facility] HDL 51 >=40 mg/dL LAB CHEMISTRY METHOD 09/27/2024 12:55 PM [facility] LDL Calculated 107(H) 0 - 100 mg/dL LAB CHEMISTRY METHOD 09/27/2024 12:55 PM [facility] VLDL Cholesterol [place] 25.8 mg/dL LAB CHEMISTRY METHOD 09/27/2024 12:55 PM [facility] Non HDL Chol. (LDL+VLDL) 133 <145 mg/dL LAB CHEMISTRY METHOD 09/27/2024 12:55 PM [facility] Chol/HDL Ratio 3.6 0.0 - 4.4 LAB CHEMISTRY METHOD 09/27/2024 12:55 PM [facility] Blood Venous blood specimen / Unknown Venipuncture / Unknown 09/27/2024 9:00 AM EST 09/27/2024 9:00 AM EST us Tete Arguello MD LAB BLOOD ORDERABLES F inal Result [facility] [address] [place] [address], [place] [phone] * Hepatitis C Screening (03/18/2024) Hepatitis C Screening abstracted Historical Provider HEALTH MAINTENANCE Final Result * Diabetes Foot Exam (03/18/2024) Diabetes: Annual Foot Exam abstracted Historical Provider HEALTH MAINTENANCE Final Result from Last 3 Months or Most Recently Relevant to Health Maintenance Insurance [facility] [employer] Care Teams Marble Cleaner Relationship Specialty Start Date End Date Tete Arguello MD [address] [place] [id number] PCP - General 01/06/24
--- NOTE | 2025-02-24 11:38 | MHC.OFFVIS ---
Intake Visit Reasons: 6m follow up Intake Note: Patient is present for 6M F/U Urology Medication:NONE Antibiotic Allergy:NONE Blood Thinner:NONE Cloth Printing Back Tender Required: No Allergies No Known Allergies Allergy (Verified 02/24/25 11:38) HPI Comments Details: Carlitos is a pleasant [place] male. He is a patient of . He seen for the following urologic conditions - incomplete bladder emptying secondary to urethral stricture - erectile dysfunction Mozambican translation provided by qualified medical director using telephone Follow-up from use of catheter Continues to use Pain with urination Accompanied by Discussed urethral reconstruction Had both anterior and posterior urethral stricture Is expected to be required to use a catheter for the foreseeable future in order to keep his bladder empty using 1 time per day 12 Yi straight Emptying works as long as he uses catheter Previously we have discussed referral to reconstructive specialist At this point in time they will defer Also reports intermittent discomfort. We will try Naprosyn as needed. 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 BPH (benign prostatic hyperplasia) Uncontrolled type 2 diabetes mellitus with hyperglycemia Diabetes mellitus, type II Hearing impaired Surgical History (Updated 12/10/23 @ 11:55 by Taty Martinez RN) History of ear surgery Hx of appendectomy History of cystoscopy (03/16/23) Social History Patient Tobacco Use Status: Former Tobacco user Tobacco use type: Cigarette Years Smoked: 5 Review of Systems Const Denies chills and Denies fever(s) Card Reports no additional complaints and Denies syncope Resp Denies cough GI Denies abdominal pain and Denies heartburn Reports as per HPI and Denies change in libido Neuro Denies syncope Psych Denies change in libido Endo Denies change in libido Physical Exam Const General: cooperative, healthy appearing, comfortable and no acute distress Orientation/consciousness: patient oriented x3 HEENT Face and sinus: Yes normal facial exam Mouth: moist mucous membranes Neck Neck: Yes normal visual inspection, Yes full ROM and Yes trachea midline Chest Chest palpation & inspection: normal inspection of the chest Resp Effort & Inspection: normal respiratory effort, able to speak in complete sentences and no respiratory distress GI Inspection: Yes normal to inspection Back/Spine/Pelvis Cervical Spine: normal cervical lordosis Thoracic/Lumbar Spine: thoracic and lumbar spine normal to inspection Skin General skin exam: no rashes or lesions noted Neuro General: patient oriented x3, gait normal, tone normal and moves all extremities Extrem General: Yes normal to inspection and Yes capillary refill normal Results AMB Urinalysis, Automated UA Leukoctes 15 Jeaneth/uL Last Edit by JONNY Gil on 02/24/25 11:36 UA Nitrite Negative Last Edit by Beatriz Myers CCM on 02/24/25 11:36 UA Urobilinogen 0.2 mg/dL Last Edit by Beatriz Myers [facility] on 02/24/25 11:36 UA Protein 0 mg/dL Last Edit by Beatriz Myers CCM on 02/24/25 11:36 UA pH 6.0 Last Edit by Beatriz Myers [facility] on 02/24/25 11:36 UA Blood 0 Dustin/uL Last Edit by Beatriz Myers [facility] on 02/24/25 11:36 UA Specific [place] 1.015 Last Edit by Beatriz Myers CCM on 02/24/25 11:36 UA Ketone Negative Last Edit by Beatriz Myers CCM on 02/24/25 11:36 UA Bilirubin 0 mg/dL Last Edit by Beatriz Myers [facility] on 02/24/25 11:36 UA Glucose 1000 mg/dL Last Edit by Beatriz Myers [facility] on 02/24/25 11:36 Results Reviewed Results Reviewed: Laboratory Last Values Urine pH (Auto) 6.0 02/24/25 11:35 Specific [place] (Auto) 1.015 02/24/25 11:35 Urine Protein (Auto) 0 mg/dL 02/24/25 11:35 Glucose (UA)(Auto) 1000 mg/dL 02/24/25 11:35 Urine Ketones (Auto) Negative 02/24/25 11:35 Urine Blood (Auto) 0 Dustin/uL 02/24/25 11:35 Urine Nitrite (Auto) Negative 02/24/25 11:35 Urine Bilirubin (Auto) 0 mg/dL 02/24/25 11:35 Urine Urobilinogen (Auto) 0.2 mg/dL 02/24/25 11:35 Leukocyte Esterase (Auto) 15 Jeaneth/uL 02/24/25 11:35 Assessment & Plan Assessment & Plan (1) Erectile dysfunction associated with type 2 diabetes mellitus: Code(s): E11.69 - Type 2 diabetes mellitus with other specified complication; N52.1 - Erectile dysfunction due to diseases classified elsewhere Category: Medical (2) Urethral stricture: Code(s): N35.919 - Unspecified urethral stricture, male, unspecified site Category: Medical Qualifiers: Urethral stricture type: post-procedural Urethral stricture sex-location: male urethra-anterior Qualified Code(s): N99.114 - Postprocedural urethral stricture, male, unspecified Plan Referral to [facility] reconstruction Six-month follow-up Orders: Orders AMB Urinalysis Automated 02/24/25 Z13.9 - Encounter for screening, unspecified Referrals Urology Referral N99.114 - Postprocedural urethral stricture, male, unspecified Medications: Changed From tadalafil 5 mg PO DAILY 30 days 30 tabs 1RF E11.69 - Type 2 diabetes mellitus with other specified complication, N52.1 - Erectile dysfunction due to diseases classified elsewhere To tadalafil 5 mg PO DAILY 90 tabs 1RF 90 days E11.69 - Type 2 diabetes mellitus with other specified complication, N52.1 - Erectile dysfunction due to diseases classified elsewhere From tadalafil administer approximately 30min before sexual activity; do not use more than 1 dose per 24hrs 20 mg PO .PRN PRN 30 tabs 1RF sexual activity E11.69 - Type 2 diabetes mellitus with other specified complication, N52.1 - Erectile dysfunction due to diseases classified elsewhere To tadalafil administer approximately 30min before sexual activity; do not use more than 1 dose per 24hrs [id number] [facility] [id number] Member [id number] 20 mg PO ONCE PRN 30 tabs 0RF sexual activity 30 days E11.69 - Type 2 diabetes mellitus with other specified complication, N52.1 - Erectile dysfunction due to diseases classified elsewhere Patient Instructions: This note is constructed using voice recognition software. While every effort has been made to ensure accuracy bill peddler errors may have been included. Imaging studies, laboratory and physical exam results were discussed and reviewed in detail. No major barriers to patient understanding were identified. An opportunity to ask questions regarding the treatment plan was provided. All questions were answered. The patient expressed understanding and agreement with the above treatment plan. The patient is aware they should contact our office by phone for worsening of their current condition or the appearance of new urologic symptoms. Compliance is encouraged with any medications and followup testing that is ordered. It is a privilege to participate in the urologic care of your patient. If you have any questions or concerns regarding treatment for the above conditions, or other urologic issues, please do not hesitate to contact me. The office telephone contact is [phone]. Sincerely, Dr Shailesh Del Toro MD, [facility] - Urology Compassionate Specialist Care for the Genitourinary System Coding Level of Care Code Est Pt Level 3 (82679) Complex EM visit Add On G2211 Diagnoses Erectile dysfunction associated with type 2 diabetes mellitus E11.69; N52.1 Postprocedural stricture of anterior urethra N99.114 Urethral stricture type: post-procedural Urethral stricture sex-location: male urethra-anterior
== END 2025-02-24 12:40 | disposition home or self-care (01) ==
LOC: HO.HUSH 11:03
PROVIDERS: Visit Provider Urology
DX: E11.69 Type 2 diabetes mellitus with other specified complication (principal); N52.1 Erectile dysfunction due to diseases classified elsewhere; N99.114 Postprocedural urethral stricture, male, unspecified
CPT/HCPCS: 99213; G2211

== ENCOUNTER → 2025-02-24 11:02 | Outpatient (BNVA) | payer OTHER, SELFPAY | PROVIDERS: Visit Provider Urology | DX: E11.69 Type 2 diabetes mellitus with other specified complication (principal); N52.1 Erectile dysfunction due to diseases classified elsewhere; N99.114 Postprocedural urethral stricture, male, unspecified; Z96.0 Presence of urogenital implants | CPT/HCPCS: 81003; 99212 ==

== ENCOUNTER 2025-08-25 11:12 | Outpatient (AMB) | payer OTHER, SELFPAY ==
--- NOTE | 2025-08-25 11:19 | A.OFFVIS_ITS ---
Intake Visit Reasons: 7M PVR/Follow up Intake Note: Reason for Visit: PVR Follow Up Urology Meds: Tadalafil, Blood Thinners: None Labs: None Imaging: None Last PVR: None PVR: 123ml Has not yet been scheduled at [facility] Special Procedures Technologist Required: Yes Special Procedures Technologist Language: Sammarinese Special Procedures Technologist Services: Special Procedures Technologist Present Accompanied by: Spouse Allergies No Known Allergies Allergy (Verified 08/25/25 11:24) HPI Comments Details: Carlitos is a pleasant Sammarinese male. He is a patient of . He seen for the following urologic conditions - incomplete bladder emptying secondary to urethral stricture - erectile dysfunction Sammarinese translation provided by qualified medical practice assistant using telephone Follow-up from use of catheter Continues to use Pain with urination Accompanied by Discussed urethral reconstruction - will try and contact Dr Greenfield office again Had both anterior and posterior urethral stricture Is expected to be required to use a catheter for the foreseeable future in order to keep his bladder empty using 1 time per day 12 Lithuanian straight Emptying works as long as he uses catheter Previously we have discussed referral to reconstructive specialist At this point in time they will defer Also reports intermittent discomfort. We will try Naprosyn as needed. Erectile dysfunction in setting of diabetes Treatment with daily tadalafil and 20 mg on demand Successful Cystoscopy - prior bladder repair and hypospadias repair as child - use of skin flap - has hair within urethra and urethral narrowing Intervention - 03/29 cystoscopy, dilatation with hair remove PFSH Medical History (Updated 07/20/24 @ 16:27 by Shailesh Del Toro MD) 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 BPH (benign prostatic hyperplasia) Uncontrolled type 2 diabetes mellitus with hyperglycemia Diabetes mellitus, type II Hearing impaired Surgical History (Updated 12/10/23 @ 11:55 by Taty Martinez RN) History of ear surgery Hx of appendectomy History of cystoscopy (03/16/23) Social History Patient Tobacco Use Status: Former Tobacco user Tobacco use type: Cigarette Years Smoked: 5 Review of Systems Const Denies chills and Denies fever(s) Card Reports no additional complaints and Denies syncope Resp Denies cough GI Denies abdominal pain and Denies heartburn Reports as per HPI and Denies change in libido Neuro Denies syncope Psych Denies change in libido Endo Denies change in libido Physical Exam Const General: cooperative, healthy appearing, comfortable and no acute distress Orientation/consciousness: patient oriented x3 HEENT Face and sinus: Yes normal facial exam Mouth: moist mucous membranes Neck Neck: Yes normal visual inspection, Yes full ROM and Yes trachea midline Chest Chest palpation & inspection: normal inspection of the chest Resp Effort & Inspection: normal respiratory effort, able to speak in complete sentences and no respiratory distress GI Inspection: Yes normal to inspection Back/Spine/Pelvis Cervical Spine: normal cervical lordosis Thoracic/Lumbar Spine: thoracic and lumbar spine normal to inspection Skin General skin exam: no rashes or lesions noted Neuro General: patient oriented x3, gait normal, tone normal and moves all extremities Extrem General: Yes normal to inspection and Yes capillary refill normal Office Procedures Post Void Residual Post Residual Void Post Void Residual (PVR): 123 [id number] Void Residual by ultrasound Assessment & Plan Assessment & Plan (1) Urethral stricture: Code(s): N35.919 - Unspecified urethral stricture, male, unspecified site Category: Medical Qualifiers: Urethral stricture type: post-procedural Urethral stricture sex- location: male urethra-anterior Qualified Code(s): N99.114 - Postprocedural urethral stricture, male, unspecified Plan refer [facility] Orders: Orders AMB Post Void Residual by ultrasound 08/25/25 R33.9 - Retention of urine, unspecified Medications: New terazosin 5 mg PO BEDTIME 30 caps 1RF 30 days R33.9 - Retention of urine, unspecified bethanechol chloride 50 mg PO BID 60 tabs 1RF 30 days R33.9 - Retention of urine, unspecified, N39.0 - Urinary tract infection, site not specified Patient Instructions: This note is constructed using voice recognition software. While every effort has been made to ensure accuracy auto painter helper errors may have been included. Imaging studies, laboratory and physical exam results were discussed and reviewed in detail. No major barriers to patient understanding were identified. An opportunity to ask questions regarding the treatment plan was provided. All questions were answered. The patient expressed understanding and agreement with the above treatment plan. The patient is aware they should contact our office by phone for worsening of their current condition or the appearance of new urologic symptoms. Compliance is encouraged with any medications and followup testing that is ordered. It is a privilege to participate in the urologic care of your patient. If you have any questions or concerns regarding treatment for the above conditions, or other urologic issues, please do not hesitate to contact me. The office telephone contact is [phone]. Sincerely, Dr Shailesh Del Toro MD, [facility] - Urology Compassionate Specialist Care for the Genitourinary System Coding Level of Care Code Est Pt Level 3 (83780) Add On Problem Visit Only Diagnoses Postprocedural stricture of anterior urethra N99.114 Urethral stricture type: post-procedural Urethral stricture sex-location: male urethra-anterior CPT Codes Post Residual Void - PVR CPT Code: 65080-Gjmo Void Residual by ultrasound ([id number])
--- OUTSIDE RECORDS SUMMARY | 2025-08-25 13:11 | XMS_ITS | Clinical Summary ---
Author Organization [facility] [address] [facility] [address] [address] Address [address] [place] [address] Phone Care Team Providers Care Polysomnography Tech Name Role Phone Tete Arguello MD Primary Care Provider Allergies No known active allergies Medications metFORMIN XR (GLUCOPHAGE-XR) 500 mg 24 hr tablet Take 2 tablets (1,000 mg total) by mouth 2 (two) times a day. Do not crush, chew, or split. 180 tablet 2 5 Active atorvastatin (LIPITOR) 40 mg tabletIndications:M ixed hyperlipidemia Take 1 tablet (40 mg total) by mouth 1 (one) time each day. 90 each 1 5 Active lisinopriL (PRINIVIL,ZESTRIL) 10 mg tabletIndications:P rimary hypertension Take 1 tablet (10 mg total) by mouth 1 (one) time each day. 90 each 1 5 Active empagliflozin (Jardiance) 10 mg tabletIndications:T ype 2 diabetes mellitus with hyperglycemia, without long-term current use of insulin (CMS/HCC V24, CMS/HCC V28) Take 1 tablet (10 mg total) by mouth 1 (one) time each day. 90 tablet 5 Active Januvia 100 mg tabletIndications:T ype 2 diabetes mellitus with hyperglycemia, without long-term current use of insulin (CMS/HCC V24, CMS/HCC V28) Take 1 tablet by mouth once daily 90 tablet 5 Active Active Problems Problem Noted Date Diagnosed Date BPH (benign prostatic hyperplasia) 06/29/2024 Horseshoe kidney 06/29/2024 Diabetes 03/18/2024 Hypertension 03/18/2024 Hyperlipidemia 03/18/2024 Immunizations Immunization Administration Dates Next Due Influenza Quadravalent, pratik [...] mellitus type 2, co ntrolled, with complications (CMS/HCC V24, CMS/HCC V28) DX:Diabetes mellitus type 2, controlled, with complications ([facility]) Essential hypertension DX:Essent ial hypertension Hyperlipidemia DX:Hyperlipidemi [...] on file Sexual Orientation Not on file Last Filed Vital Signs Vital Sign Reading [...] 01/27/2025 3:40 PM EDT Plan of Treatment Health Maintenance Due Date Last Done Comments Colorectal Cancer Screening: Colonoscopy 1971 Diabetes: Annual Retina Eye Exam 1981 Hepatitis B Vaccines (1 of 3 - 19+ 3-dose series) 1990 Pneumococcal Vaccine: 50+ Years (1 of 2 - PCV) 1990 RSV Immunization Adult Patients (1 - Risk 50-74 years 1-dose series) 2021 Zoster Vaccines (1 of 2) 2021 Social Influencers of Health Screening 07/20/2024 Depression Screening 09/07/2024 Diabetes: Annual Foot Exam 03/18/2025 03/18/2024 COVID-19 Vaccine ( - season) 2025 Influenza Vaccine (#1) 2025 07/01/2020, 2019 Diabetes: Blood Sugar Control Test (HGBA1C) 07/30/2025 [...] hyperglycemia, without long-term current use of insulin ([facility] V24, [facility] V28) HEMOGLOBIN A1C Routine 01/27/2025 4:28 PM EDT Type 2 diabetes mellitus with hyperglycemia, without long-term current use of insulin ([facility] V24, [facility] V28) MICROALBUMIN CREATININE URINE RATIO Routine 09/27/2024 9:10 AM EST Type 2 diabetes mellitus with hyperglycemia, without long-term current use of insulin ([facility] V24, CMS/[facility] V28) Mixed hyperlipidemia LIPID PANEL WITH REFLEX TO DIRECT LDL Routine 09/27/2024 9:00 AM EST Type 2 diabetes mellitus with hyperglycemia, without long-term current use of insulin ([facility] V24, CMS/[facility] V28) Mixed hyperlipidemia HEPATITIS C SCREENING Routine 03/18/2024 DIABETES FOOT EXAM Routine 03/18/2024 from Last 3 Months or Most Recently Relevant to Health Maintenance Results * (ABNORMAL) Hemoglobin A1c (01/27/2025 4:28 PM EDT) Hemoglobin A1C 11.0(H) <6.5 % LAB CHEMISTRY METHOD 01/29/2025 1:04 PM [facility] Mean Bld Glu Estim. 269 mg/dL LAB CHEMISTRY METHOD 01/29/2025 1:04 PM [facility] Blood Venous blood specimen / Unknown Venipuncture / Unknown 01/27/2025 4:28 PM EDT 01/27/2025 4:28 PM EDT us Mac [facility] LAB BLOOD ORDERABLES Final Re sult [facility] [address] [place] [address], [place] [phone] * (ABNORMAL) Comprehensive metabolic panel (01/27/2025 4:28 PM EDT) Sodium 132(L) 133 - 145 mmol/L LAB CHEMISTRY METHOD 01/27/2025 6:20 PM [facility] Potassium 4.7 3.5 - 5.5 mmol/L LAB CHEMISTRY METHOD 01/27/2025 6:20 PM [facility] Chloride 98 96 - 110 mmol/L LAB CHEMISTRY METHOD 01/27/2025 6:20 PM [facility] CO2 27 21 - 32 mmol/L LAB CHEMISTRY METHOD 01/27/2025 6:20 PM [facility] Anion Gap 7 3 - 11 LAB CHEMISTRY METHOD 01/27/2025 6:20 PM [facility] Glucose 280(H) 70 - 100 mg/dL LAB CHEMISTRY METHOD 01/27/2025 6:20 PM [facility] BUN 20 5 - 25 mg/dL LAB CHEMISTRY METHOD 01/27/2025 6:20 PM [facility] Creatinine 0.98 0.70 - 1.30 mg/dL LAB CHEMISTRY METHOD 01/27/2025 6:20 PM [facility] eGFR 92 >=60 mL/min/1. 73m2 LAB CHEMISTRY METHOD 01/27/2025 6:20 PM EDT [facility] Comment:Calculation based on the Chronic Kidney Disease Epidemiology Collaboration (CKD-EPI) equation refit without adjustment for race. BUN/Creatinine Ratio 20.4 LAB CHEMISTRY METHOD 01/27/2025 6:20 PM T [facility] Calcium 9.8 8.5 - 10.5 mg/dL LAB CHEMISTRY METHOD 01/27/2025 6:20 PM [facility] AST (SGOT) 18 10 - 42 unit/L LAB CHEMISTRY METHOD 01/27/2025 6:20 PM [facility] ALT (SGPT) 41 10 - 60 unit/L LAB CHEMISTRY METHOD 01/27/2025 6:20 PM [facility] Alkaline Phosphatase 60 42 - 121 unit/L LAB CHEMISTRY METHOD 01/27/2025 6:20 PM [facility] Total Protein 7.6 6.0 - 8.0 g/dL LAB CHEMISTRY METHOD 01/27/2025 6:20 PM [facility] Albumin 4.1 3.2 - 5.0 g/dL LAB CHEMISTRY METHOD 01/27/2025 6:20 PM [facility] Total Bilirubin 0.8 0.0 - 1.4 mg/dL LAB CHEMISTRY METHOD 01/27/2025 6:20 PM [facility] Blood Venous blood specimen / Unknown Venipuncture / Unknown 01/27/2025 4:28 PM EDT 01/27/2025 4:28 PM EDT us Mac [facility] LAB BLOOD ORDERABLES Final Re sult [facility] [address] [place] [address], * (ABNORMAL) Microalbumin creatinine urine ratio (09/27/2024 9:10 AM EST) Creatinine, Urine 237.0 mg/dL LAB CHEMISTRY METHOD 09/27/2024 1:15 PM [facility] Microalb, Ur 86.3(H) 0.0 - 29.0 mg/L LAB CHEMISTRY METHOD 09/27/2024 1:15 PM [facility] Microalb/Crea t Ratio 36(H) <30 mg/g creat LAB CHEMISTRY METHOD 09/27/2024 1:15 PM [facility] Urine Urine specimen obtained by clean catch procedure / Unknown Non-blood Collection / Unknown 09/27/2024 9:10 AM EST 09/27/2024 9:10 AM EST us Tete Arguello MD LAB URINE ORDERABLES F inal Result [facility] [address] [place] [address], [place] [phone] * (ABNORMAL) Lipid panel with reflex to direct LDL (09/27/2024 9:00 AM EST) Pathologist [facility] Cholesterol 184 0 - 200 mg/dL LAB CHEMISTRY METHOD 09/27/2024 12:55 PM [facility] Triglycerides 129 0 - 150 mg/dL LAB CHEMISTRY METHOD 09/27/2024 12:55 PM [facility] HDL 51 >=40 mg/dL LAB CHEMISTRY METHOD 09/27/2024 12:55 PM [facility] LDL Calculated 107(H) 0 - 100 mg/dL LAB CHEMISTRY METHOD 09/27/2024 12:55 PM [facility] VLDL Cholesterol [place] 25.8 mg/dL LAB CHEMISTRY METHOD 09/27/2024 12:55 PM [facility] Non HDL Chol. (LDL+VLDL) 133 <145 mg/dL LAB CHEMISTRY METHOD 09/27/2024 12:55 PM [facility] Chol/HDL Ratio 3.6 0.0 - 4.4 LAB CHEMISTRY METHOD 09/27/2024 12:55 PM EST [facility] Blood Venous blood specimen / Unknown Venipuncture / Unknown 09/27/2024 9:00 AM EST 09/27/2024 9:00 AM EST Tete Arguello MD LAB BLOOD ORDERABLES F inal Result [facility] [address] [place] [address], [place] [phone] * Hepatitis C Screening (03/18/2024) Pathologist [facility] Hepatitis C Screening abstracted Historical Provider HEALTH MAINTENANCE Final Result * Diabetes Foot Exam (03/18/2024) Pathologist [facility] Diabetes: Annual Foot Exam abstracted Historical Provider HEALTH MAINTENANCE Final Result from Last 3 Months or Most Recently Relevant to Health Maintenance Insurance [facility] Care Teams Polysomnography Tech Relationship Specialty Start Date End Date Tete Arguello MD [address] [place] [id number] [facility] - General 01/06/24
== END 2025-08-25 12:50 | disposition home or self-care (01) ==
LOC: HO.HUSH 11:12
PROVIDERS: Visit Provider Urology
DX: N99.114 Postprocedural urethral stricture, male, unspecified (principal)
CPT/HCPCS: 99213

== ENCOUNTER → 2025-08-25 11:12 | Outpatient (BNVA) | payer OTHER, SELFPAY | PROVIDERS: Visit Provider Urology | DX: N99.114 Postprocedural urethral stricture, male, unspecified (principal); N39.0 Urinary tract infection, site not specified; R33.9 Retention of urine, unspecified | CPT/HCPCS: 51798; 99212 ==